=== PATIENT | male | born 1960 | race Caucasian/White ===

== ENCOUNTER → 2017-02-25 | Outpatient (CLI) | payer OTHER ==
--- NOTE | 2017-02-25 11:34 | KCIC ---
INDICATION: Concussion, yellow drainage from ears 3 days post injury. Head trauma with laceration on left in June. Double vision and headaches. TECHNIQUE: Sagittal T1, axial T1, axial T2, axial FLAIR, axial T2 gradient, coronal T2, and diffusion imaging with ADC map was performed. No comparison is available. FINDINGS: The ventricles and sulci are within normal limits for age. A few FLAIR hyperintensities in the supratentorial white matter and zev are not specific but most suggestive of minimal small vessel ischemic disease. There is no acute intracranial hemorrhage or extra-axial fluid collection. There is no mass effect or midline shift. There is no restricted diffusion to suggest an acute infarct. Cervicomedullary junction is unremarkable. Intracranial flow voids are preserved. There is minimal ethmoid mucosal thickening. There is partial opacification of the right mastoid air cells. IMPRESSION: 1. No acute intracranial findings. 2. Brain parenchymal volume loss and minimal probable small vessel ischemic disease. Electronically signed by: Santana Galvin MD (02/25/2017 11:30 AM) [id number]
== END | disposition home or self-care (01) ==
LOC: KCIC MRI 08:55
PROVIDERS: ATTEND Psychiatry & Neurology Neurology with Special Qualifications in Child Neurology
DX: S09.90XA Unspecified injury of head, initial encounter (principal); F07.81 Postconcussional syndrome; H53.2 Diplopia; X58.XXXA Exposure to other specified factors, initial encounter; Y93.89 Activity, other specified; Y92.89 Other specified places as the place of occurrence of the external cause; Y99.8 Other external cause status
CPT/HCPCS: 70551